=== PATIENT | male | born 1960 ===

== ENCOUNTER 2017-08-23 00:19 | Day surgery (SDC) | payer OTHER ==
[~2017-08-23] VITALS: Ht 167.6 cm; Wt 80.7 kg
[2017-08-23] VITALS (9 sets, daily range): BP systolic 121–139; BP diastolic 79–96
[~2017-08-23 00:19] MED LIST: ASPI-1471 PO; ASPI-715 PO; ASPIRIN; ATOR40TA24 PO; BENA40TA52 PO; BLOO1EAC MC; INSU100I30 SQ; MET500 PO; OLME1TAB49 PO; PIOG45TA18 PO; SITA1TAB17 PO
[2017-08-23] MEDS ORDERED: LIDOCAINE/SOD BICARB 8.4% SYR ID ONE (06:30)
[2017-08-23] MEDS ORDERED: NORMOSOL R SOLN(*) 1000 ML BAG 1,000 ML IV PRN (06:30)
[2017-08-23] MEDS ORDERED: MIDAZOLAM 2 MG/2 ML VIAL IVP PRN (06:30)
[2017-08-23] MEDS ORDERED: PROPOFOL EMUL(*) 10MG/ML 20 ML 40 ML ONE (06:54)
[2017-08-23] MEDS ORDERED: PROPOFOL EMUL(*) 10MG/ML 20 ML 20 ML ONE (07:45)
== END 2017-08-23 09:40 | disposition home or self-care (01) ==
LOC: OR 00:19
PROVIDERS: ATTEND Internal Medicine
DX: Z12.11 Encounter for screening for malignant neoplasm of colon (principal); K57.30 Diverticulosis of large intestine without perforation or abscess without bleeding; E11.9 Type 2 diabetes mellitus without complications
CPT/HCPCS: 00812; 36416; 45378; 82948; J2704